=== PATIENT | female | born 1995 | race African-American/Black ===

== ENCOUNTER 2021-03-20 14:17 | Emergency (ER) | payer SELFPAY ==
[2021-03-20 15:36] LABS: #Monocytes 0.6 10x3/uL (0.0-1.1); #Neutrophils 3.8 10x3/uL (1.5-8.4); %Basophils 0.6 % (0.0-2.0); %Eosinophils 0.5 % (0.0-6.0); %Lymphocytes 26.8 % (18.0-47.0); %Monocytes 9.7 % (0.0-10.0); %Neutrophils 62.1 % (40.0-75.0); Hemoglobin 12.1 g/dL (12.0-15.5); Mean Corpuscular HGB CONC 30.9 g/dL (32.0-36.0); Mean Corpuscular Hemoglobin 24.3 pg (27.0-33.0); Mean Corpuscular Volume 78.9 fl (81.6-98.3); Mean Platelet Volume 11.5 fl (7.4-10.4); Platelet Count 181 10x3/uL (150-450); RBC Distribution Width 16.7 % (11.5-14.5); Red Blood Cell (RBC) Count 4.97 10x6/uL (3.90-5.03); White Blood Cell (WBC) Count 6.2 10x3/uL (3.5-10.5)
[2021-03-20 15:48] LABS: Anion Gap 12 mmol/L (10-20); BUN (Urea Nitrogen) 5 mg/dL (7.0-18.7); Calc. Creatinine Clearance 0 mL/min (70-130); Calcium 9.6 mg/dL (7.8-10.44); Carbon Dioxide 22 mmol/L (22-29); Chloride 105 mmol/L (98-107); Glucose 96 mg/dL (70-105); Potassium 3.4 mmol/L (3.5-5.1); Sodium 136 mmol/L (136-145)
== END 2021-03-20 17:00 | disposition home or self-care (01) ==
LOC: CSHERS 14:17
DX: O20.9 Hemorrhage in early pregnancy, unspecified (principal); Z3A.13 13 weeks gestation of pregnancy
CPT/HCPCS: 36415; 76856; 80048; 84702; 85025; 86900; 86901

== ENCOUNTER 2021-08-08 10:08 | Day surgery (SDC) | payer BC, OTHER ==
[2021-08-08 10:26] VITALS: BMI 65.7
[2021-08-08] MEDS ORDERED: hydrALAZINE 20 MG/ML VIAL SLOW IVP PRN (10:56)
== END 2021-08-08 12:36 | disposition home or self-care (01) ==
LOC: CSHLD/OP 10:08
PROVIDERS: ATTEND Family Medicine
DX: O24.913 Unspecified diabetes mellitus in pregnancy, third trimester (principal); O34.219 Maternal care for unspecified type scar from previous cesarean delivery; Z3A.32 32 weeks gestation of pregnancy; Z79.4 Long term (current) use of insulin
CPT/HCPCS: 76819; 99282

== ENCOUNTER 2022-03-15 09:09 | Emergency (ER) | payer BC, OTHER ==
[2022-03-15] MEDS ORDERED: Acetaminophen 500 MG TAB ONE (10:48)
[2022-03-15] MEDS ORDERED: Dexamethasone 10 MG/ML VIAL ONE (10:48)
== END 2022-03-15 12:15 | disposition home or self-care (01) ==
LOC: CSHERS 09:09
DX: J02.8 Acute pharyngitis due to other specified organisms (principal); B34.9 Viral infection, unspecified; J06.9 Acute upper respiratory infection, unspecified
CPT/HCPCS: 87081; 87430; 87804; 99283; J1100

== ENCOUNTER 2022-07-01 02:47 | Emergency (ER) | payer BC, OTHER ==
[2022-07-01] MEDS ORDERED: Ondansetron PF 4 MG/2 ML Vial ONE (03:42)
[2022-07-01 03:54] LABS: Hemoglobin 10.8 g/dL (12.0-15.5); Mean Corpuscular HGB CONC 29.1 g/dL (32.0-36.0); Mean Corpuscular Hemoglobin 21.7 pg (27.0-33.0); Mean Corpuscular Volume 74.6 fl (81.6-98.3); Platelet Count 278 10x3/uL (150-450); RBC Distribution Width 18.4 % (11.5-14.5); Red Blood Cell (RBC) Count 4.97 10x6/uL (3.90-5.03); White Blood Cell (WBC) Count 14.9 10x3/uL (3.5-10.5)
[2022-07-01 03:55] LABS: BHCG - Serum Negative (NEGATIVE); MDiff Complete? YES; Pregs Control Background? CLEAR/WHITE (CLR/WHITE); Pregs Control Bar Appear? YES (CONTROL BAR)
[2022-07-01 04:04] LABS: ALT (SGPT) 11 U/L (8-55); AST (SGOT) 12 U/L (5-34); Albumin 3.9 g/dL (3.5-5.0); Alkaline Phosphatase 72 U/L (40-110); Anion Gap 13 mmol/L (10-20); BUN (Urea Nitrogen) 12 mg/dL (7.0-18.7); Bilirubin, Total 0.3 mg/dL (0.2-1.2); Calc. Creatinine Clearance 0 mL/min (70-130); Calcium 8.9 mg/dL (7.8-10.44); Carbon Dioxide 24 mmol/L (22-29); Chloride 101 mmol/L (98-107); Estimated GFR 110; Globulin 3.9 g/dL (2.4-3.5); Glucose 252 mg/dL (70-105); Lipase 15 U/L (8-78); Potassium 4.1 mmol/L (3.5-5.1); Protein, Total 7.8 g/dL (6.0-8.3); Sodium 134 mmol/L (136-145)
[2022-07-01 04:26] LABS: Mean Platelet Volume 11.6 fl (7.4-10.4)
[2022-07-01 04:40] LABS: Band 1 % (5-11); Lymphocytes 10 % (21-51); Monocytes 3 % (0-10); Neutrophil 85 % (42-75); Reactive Lymphocytes 1 % (0-10)
[2022-07-01 04:46] LABS: Anisocytosis SLIGHT = 6-15 cells (100X) (0-5/hpf); Hypochromia SLIGHT = 6-15 cells (100X) (0-5/hpf); Microcytosis SLIGHT = 6-15 cells (100X) (0-5/hpf)
[2022-07-01 04:47] LABS: Elliptocytes SLIGHT = 2-5 cells (100X) (0-1/hpf); Giant Platelets SLIGHT; Ovalocytes SLIGHT = 2-5 cells (100X) (0-1/hpf); Platelet Morphology Comment Appears Adequate; Schistocytes SLIGHT = 2-5 cells (100X) (0-1/hpf)
[2022-07-01 05:02] LABS: Bilirubin Neg (Negative); Blood, Urine Negative (Negative); Clarity Clear (Clear); Glucose, Urine (Dipstick) 100 mg/dL (Negative); Ketone, Urine Negative (Negative); Leukocyte 25 (Negative); Nitrite Negative (Negative); Protein, Urine (Dipstick) 100 mg/dl (Neg-Trace); pH, Urine 6.5 (5.0-9.0)
[2022-07-01 05:12] LABS: Bacteria/HPF None Seen HPF (None Seen); RBC/HPF 0-3 HPF (0-3); Squamous Epithelial 0-3 HPF (0-3); WBC/HPF 0-3 HPF (0-3)
== END 2022-07-01 05:43 | disposition home or self-care (01) ==
LOC: CSHERS 02:47
DX: R00.2 Palpitations (principal); R19.7 Diarrhea, unspecified; R11.10 Vomiting, unspecified; I10 Essential (primary) hypertension; Z79.899 Other long term (current) drug therapy
CPT/HCPCS: 80053; 81003; 81015; 83690; 84443; 84484; 84703; 85025; 93005; 96361; 96374; J2405